=== PATIENT | female | born 1995 | race Caucasian/White ===

== ENCOUNTER 2018-04-18 07:40 | Emergency (ER) | payer SELFPAY ==
[~2018-04-18] VITALS: Ht 167.6 cm; Wt 75.1 kg
[2018-04-18 07:43] VITALS: BP 146/88; PULSE 122; RESP 20; Ht 167.6 cm; Wt 75.1 kg
[2018-04-18] MEDS ORDERED: CIPR-193 PO (11:25)
[2018-04-18] MEDS ORDERED: METR70GE4 VAGINAL (11:25)
== END 2018-04-18 08:40 | disposition left against medical advice (07) ==
LOC: FTE 07:40
DX: Z53.21 Procedure and treatment not carried out due to patient leaving prior to being seen by health care provider (principal)

== ENCOUNTER 2018-04-18 09:35 | Emergency (ER) | payer SELFPAY ==
[~2018-04-18] VITALS: Ht 167.6 cm; Wt 65.0 kg
[2018-04-18 09:40] VITALS: BP 122/77; PULSE 68; RESP 20; Ht 167.6 cm; Wt 65.0 kg
--- NOTE | 2018-04-18 10:23 | ERD ---
ER Documentation Chief Complaint Chief Complaint Complains of a discharge x 3 days HPI 22-year-old female, presents to the emergency department, complaining of vaginal discharge and itching after having unprotected intercourse last night. The patient refers that she is in a monogamous relationship, but she wants to be checked. Denies fevers, no chills, no pelvic pain, no previous history of sexually transmitted infections. ROS All systems reviewed and are negative except as per history of present illness. Medications Home Meds Active Scripts Ciprofloxacin Hcl* (Ciprofloxacin Hcl*) 250 Mg Tablet, 250 MG PO BID for 5 Days, #10 TAB Prov:BENITO EGAN MD 04/18/18 Metronidazole (Metronidazole Gel) 0.75% - 70GM Gel.w.appl, 1 APPFUL VAGINAL QHS for 7 Days, #1 TUB Prov:BENITO EGAN MD 04/18/18 Allergies Allergies: Coded Allergies: No Known Allergy (Unverified , 04/18/18) PMhx/Soc Hx Alcohol Use: No Hx Substance Use: No Hx Tobacco Use: No Smoking Status: Never smoker FmHx Family History: No diabetes, No coronary disease Physical Exam Vitals Vital Signs Date Temp Pulse Resp B/P (MAP) Pulse Ox O2 O2 Flow FiO2 Time Delivery Rate 04/18/18 98.6 68 20 122/77 98 09:40 (92) Physical Exam Const: No acute distress Head: Atraumatic Eyes: Normal Conjunctiva ENT: Normal External Ears, Nose and Mouth. Neck: Full range of motion. No meningismus. Resp: Clear to auscultation bilaterally Cardio: Regular rate and rhythm, no murmurs Abd: Soft, non tender, non distended. Normal bowel sounds : Normal external genitalia, grayish malodorous vaginal discharge present. No cervical motion tenderness, no adnexal masses. Skin: No petechiae or rashes Back: No midline or flank tenderness Ext: No cyanosis, or edema Neur: Awake and alert Psych: Normal Mood and Affect Results 24 hrs Laboratory Tests Test 04/18/18 10:38 04/18/18 10:49 POC Beta HCG, Qualitative NEGATIVE Bedside Urine pH (LAB) 5.5 Bedside Urine Protein (LAB) 2+ Bedside Urine Glucose (UA) Negative Bedside Urine Ketones (LAB) 2+ Bedside Urine Blood 2+ Bedside Urine Nitrite (LAB) Negative Bedside Urine Leukocyte Esterase (L 2+ Procedures/MDM At the time of discharge, vital signs stable. Differential diagnosis considered include UTI, cystitis, yeast infection, vaginitis, bacterial vaginosis, pelvic inflammatory disease, STI's . Less likely malignancy or acute abdomen. During the ED course the patient remained stable, no new complaints. Results and clinical impression discussed with the patient who agrees with management. The patient is stable to be treated outpatient and will be discharged home; some side effects of prescribed medications (headache, rash, nausea, vomiting, diarrhea, drowsiness, habituation, bleeding, hypertension, interactions with other medications) were reviewed. Follow up with the primary care provider in the next 48h has been recommended. If symptoms persist, worsen or new symptoms develop, then patient should return to the ED immediately. Instructions explained and given directly by me to the patient with acknowledgment and demonstrated understanding. Disclaimer: Inadvertent spelling and grammatical errors are likely due to EHR/dictation software use and do not reflect on the overall quality of patient care. Also, please note that the electronic time recorded on this note does not necessarily reflect the actual time of the patient encounter. Departure Diagnosis: Primary Impression: Bacterial vaginosis Additional Impression: UTI (urinary tract infection) Condition: Stable Patient Instructions: Understanding Urinary Tract Infections (UTIs) Additional Instructions: Thank you very much for allowing us to participate in your care. Your health and safety is our top priority at [facility]. Call your primary care doctor TOMORROW for an appointment during the next 2-4 days and bring all the information and medications prescribed. Have prescriptions filled and follow precisely the directions on the label. If the symptoms get worse and your provider is unavailable, return to the Emergency Department immediately. BENITO EGAN MD Apr 18, 2018 10:23
[2018-04-18] MEDS ORDERED: CIPR-193 PO (11:25)
[2018-04-18] MEDS ORDERED: METR70GE4 VAGINAL (11:25)
== END 2018-04-18 11:45 | disposition home or self-care (01) ==
LOC: FTE 09:35
DX: N76.0 Acute vaginitis (principal); N39.0 Urinary tract infection, site not specified
CPT/HCPCS: 81003; 81025; 87210; 99283